=== PATIENT | female | born 1955 | race Two or more races ===

== ENCOUNTER → 2017-11-14 | Outpatient (CLI) | payer OTHER ==
[~2017-11-14] MED LIST: CLINDAMYCIN HC150 MG PO; IBUPROFEN800 MG PO; KETO10TA2 PO; PNEU16DI2; SYNTHROID75 MCG
== END | disposition home or self-care (01) ==
LOC: MAMO-SONO 08:15 → SONOGRAMA 08:15 → MAMO-SONO 14:59
DX: Z12.31 Encounter for screening mammogram for malignant neoplasm of breast (principal); N61.0 Mastitis without abscess

== ENCOUNTER 2019-05-10 12:37 | Outpatient (CLI) | payer OTHER | END 2019-05-10 12:51 | disposition home or self-care (01) | LOC: SONOGRAMA 12:37 | DX: E03.8 Other specified hypothyroidism (principal) ==

== ENCOUNTER 2019-05-24 09:02 | Outpatient (CLI) | payer OTHER | END 2019-05-24 10:25 | disposition home or self-care (01) | LOC: NUCLEAR 09:02 | DX: M81.0 Age-related osteoporosis without current pathological fracture (principal) ==

== ENCOUNTER 2019-08-08 07:54 | Outpatient (CLI) | payer OTHER | END 2019-08-08 07:56 | disposition home or self-care (01) | LOC: MAMO-SONO 07:54 | DX: Z12.31 Encounter for screening mammogram for malignant neoplasm of breast (principal); Z87.898 Personal history of other specified conditions; N60.11 Diffuse cystic mastopathy of right breast; N60.12 Diffuse cystic mastopathy of left breast; Z80.0 Family history of malignant neoplasm of digestive organs ==

== ENCOUNTER 2020-12-30 12:14 | Outpatient (CLI) | payer OTHER | END 2020-12-30 12:30 | disposition home or self-care (01) | LOC: MAMO-SONO 12:14 | PROVIDERS: ATTEND General Practice | DX: N64.4 Mastodynia (principal); N60.29 Fibroadenosis of unspecified breast; Z12.31 Encounter for screening mammogram for malignant neoplasm of breast ==

== ENCOUNTER 2021-06-09 11:15 | Outpatient (CLI) | payer OTHER | END 2021-06-09 11:23 | disposition home or self-care (01) | LOC: SONOGRAMA 11:15 | PROVIDERS: ATTEND Internal Medicine | DX: E04.2 Nontoxic multinodular goiter (principal) ==

== ENCOUNTER 2021-06-16 10:30 | Outpatient (CLI) | payer OTHER | END 2021-06-16 10:31 | disposition home or self-care (01) | LOC: NUCLEAR 10:30 | PROVIDERS: ATTEND General Practice | DX: M81.0 Age-related osteoporosis without current pathological fracture (principal) ==